=== PATIENT | female | born 1985 | race Caucasian/White ===

== ENCOUNTER 2020-07-24 08:21 | Emergency (ER) | payer BC, OTHER ==
--- NOTE | 2020-07-24 08:49 | EDM.PDOC ---
ED HPI GENERAL MEDICAL PROBLEM - General Chief Complaint: Respiratory Problem Stated Complaint: SHORTNESS OF BREATHE Time Seen by Provider: 07/24/20 08:27 - History of Present Illness INITIAL COMMENTS - FREE TEXT/NARRATIVE: History of present illness: Patient presents with concerns over shortness of breath. She has been tested for COVID she has body aches cough congestion runny nose sore throat and fever off and on her is positive so it is likely that she also has the disease. She is very anxious in the emergency department and hyperventilating but she is satting 100% on room air with no obvious respiratory distress. She states she is a type I diabetic otherwise no medical problems no respiratory issues. Review of systems: As per history of present illness and below otherwise all systems reviewed and negative. Past medical history: As per history of present illness and as reviewed below otherwise noncontributory. Surgical history: As per history of present illness and as reviewed below otherwise no ncontributory. Social history: No reported history of drug or alcohol abuse. Family history: As per history of present illness and as reviewed below otherwise noncontributory. Physical exam: HEENT: Atraumatic, normocephalic, pupils reactive, negative for conjunctival pallor or scleral icterus, mucous membranes moist, throat clear, neck supple, nontender, trachea midline. Lungs: Clear to auscultation, breath sounds equal bilaterally, chest nontender. Heart: S1S2, regular, negative for clicks, rubs, or JVD. Abdomen: Soft, nondistended, nontender. Negative for masses or hepatosplenomegaly. Negative for costovertebral tenderness. Pelvis: Stable nontender. Genitourinary: Deferred. Rectal: Deferred. Extremities: Atraumatic, negative for cords or calf pain. Neurovascular unremarkable. Neuro: Awake, alert, oriented. Cranial nerves II through XII unremarkable. Cerebellum unremarkable. Motor and sensory unremarkable throughout. Exam nonfocal. Anxious Diagnostics: [] Therapeutics: [] Impression: Anxiety, COVID-19 [] Plan: She will be discharged home she is encouraged to stay home in isolation only come to the emergency department for respiratory distress. [] Definitive disposition and diagnosis as appropriate pending reevaluation and review of above. Chest Pain Score (Numeric/FACES): 1 - Related Data Allergies Allergy/AdvReac Type Severity Reaction Status Date / Time No Known Allergies Allergy Verified 07/24/20 08:32 Home Meds: Home Meds Insulin Aspart [NovoLOG] 1 dose INJECT ASDIRECTED 07/24/20 [History] Insulin Glarg,Human.Rec.Analog [Lantus] 1 dose INJECT ASDIRECTED 07/24/20 [History] Rosuvastatin [Crestor] 10 mg PO DAILY 07/24/20 [History] lisinopriL [Lisinopril] 5 mg PO DAILY 07/24/20 [History] Past Medical History Cardiovascular History: Reports: High Cholesterol, Hypertension Endocrine/Metabolic History: Reports: Diabetes, Type I - Infectious Disease History Infectious Disease History: Reports: None Social & Family History - Family History Family Medical History: Noncontributory - Tobacco Use Tobacco Use Status *Q: Never Tobacco User - Caffeine Use Caffeine Use: Reports: None - Recreational Drug Use Recreational Drug Use: No ED ROS GENERAL - Review of Systems Review Of Systems: See Below ED EXAM, GENERAL - Physical Exam Exam: See Below Course - Vital Signs Last Recorded V/S: Last Vital Signs Temp 36.1 C 07/24/20 08:34 Pulse 100 07/24/20 08:34 Resp 17 07/24/20 08:34 BP 127/79 07/24/20 08:34 Pulse Ox 98 07/24/20 08:34 Departure - Departure Time of Disposition: 08:48 Disposition: Home, Self-Care 01 Condition: Good Clinical Impression: COVID-19, Anxiety - Discharge Information *PRESCRIPTION DRUG MONITORING PROGRAM REVIEWED*: Not Applicable *COPY OF PRESCRIPTION DRUG MONITORING REPORT IN PATIENT KARLA: Not Applicable Instructions: COVID-19: How to Protect Yourself and Others - CDC, Prevent the Spread of COVID-19 if You Are Sick - [facility] Referrals: Hussein Meade MD [Primary Care Provider] - Additional Instructions: The following information is given to patients seen in the emergency department who are being discharged to home. This information is to outline your options for follow-up care. We provide all patients seen in our emergency department with a follow-up referral. The need for follow-up, as well as the timing and circumstances, are variable depending upon the specifics of your emergency department visit. If you don't have a primary care physician on staff, we will provide you with a referral. We always advise you to contact your personal physician following an emergency department visit to inform them of the circumstance of the visit and for follow-up with them and/or the need for any referrals to a consulting specialist. The emergency department will also refer you to a specialist when appropriate. This referral assures that you have the opportunity for follow-up care with a specialist. All of these measure are taken in an effort to provide you with optimal care, which includes your follow-up. Under all circumstances we always encourage you to contact your private physician who remains a resource for coordinating your care. When calling for follow-up care, please make the office aware that this follow-up is from your recent emergency room visit. If for any reason you are refused follow-up, please contact the [facility] Emergency Department at and asked to speak to the emergency department charge nurse. Sepsis Event Note (ED) - Evaluation Sepsis Screening Result: No Definite Risk - Focused Exam Vital Signs: Vital Signs Temp Pulse Resp BP Pulse Ox 07/24/20 08:34 36.1 C 100 17 127/79 98
== END 2020-07-24 09:04 | disposition home or self-care (01) ==
LOC: MW.ED 08:21
DX: U07.1 COVID-19 (principal); F41.9 Anxiety disorder, unspecified; E78.00 Pure hypercholesterolemia, unspecified; I10 Essential (primary) hypertension; E10.9 Type 1 diabetes mellitus without complications; Z79.899 Other long term (current) drug therapy
CPT/HCPCS: 99282; 99284

== ENCOUNTER 2021-03-24 14:44 | Observation (INO) | payer BC ==
[2021-03-24 16:04] LABS: BLOOD UREA NITROGEN,BUN 10 mg/dL (7.0-18.0); CARBON DIOXIDE,CO2 28.5 mmol/L (21.0-32.0); CHLORIDE,CL 102 mmol/L (98-107); GLUCOSE RANDOM 255 mg/dL (74-106); POTASSIUM,K 4.1 mmol/L (3.5-5.1); SODIUM,NA 137 mmol/L (136-145)
[2021-03-24] MEDS ORDERED: Ondansetron 4 MG/2 ML SDV IVPUSH ONE (17:01)
--- NOTE | 2021-03-24 17:44 | EDM.PDOC ---
ED HPI GENERAL MEDICAL PROBLEM - General Chief Complaint: General Stated Complaint: LOW IRON LEVELS Time Seen by Provider: 03/24/21 14:53 - History of Present Illness INITIAL COMMENTS - FREE TEXT/NARRATIVE: CHIEF COMPLAINT(S): Anemia HISTORY OF PRESENT ILLNESS: This is a 35-year-old woman with a past medical history of dysfunctional uterine bleeding who comes to the emergency department with a chief complaint of anemia. The patient states that for the last 12 days she has been experiencing vaginal bleeding soaking approximately 1-2 pads per hour and some pelvic cramping. She states that this does feel like a normal. H owever she was on control for approximately 10 years for heavy menstrual bleeding. She states they stopped her control in August 2020. She states that over the last 12 days she is continuously blood. She states that she is feeling weak, fatigued, dizzy. She states that she is sexually active with one partner and is not concerned about STDs. She denies any chest pain or shortness of breath. REVIEW OF SYSTEMS: Constitutional: Positive for fatigue. Denies fever, chills. Eyes: Denies eye pain Ears, Nose, Mouth, & Throat: Denies earache Cardiovascular: Denies chest pain Respiratory: Denies shortness of breath Gastrointestinal: Denies abdominal pain, nausea, vomiting, diarrhea, hematochezia. Genitourinary: Positive for vaginal bleeding. Denies hematuria, dysuria, vagina l discharge Skin:Denies a rash MSK: Denies joint pain Neurological: Positive for dizziness. Denies blurred vision Psychiatric: Denies depression PAST MEDICAL HISTORY: As per history of present illness and as reviewed below otherwise noncontributory. SURGICAL HISTORY: As per history of present illness and as reviewed below otherwise noncontributory. SOCIAL HISTORY: As per history of present illness and as reviewed below otherwise noncontributory. FAMILY HISTORY: As per history of present illness and as reviewed below otherwise noncontributory. EXAMINATION OF ORGAN SYSTEMS/BODY AREAS: Constitutional: Blood pressure is 114/60, heart rate 120, respiratory rate 18 with an oxygen saturation of 98% on room air. Temperature 36.2 General: Young woman who does not appear to be in acute distress. Psychiatric: Appropriate mood and affect. Eyes: No scleral icterus or conjunctival erythema conjunctiva is pale. ENMT: Moist mucous membranes. No pharyngeal erythema pale mucous membranes. Cardiovascular: Tachycardic but regular no gallops, murmurs, or rubs. Bilateral upper extremity pulses symmetric and intact. No peripheral edema. No JVD. Respiratory: Lungs clear to auscultation bilaterally. No wheezes, rales, or rhonchi. Gastrointestinal: Soft, non-tender, non-distended. Normoactive bowel sounds Genitourinary: No suprapubic tenderness no CVA tenderness. Pelvic examination was performed with BALBIR Vasquez in presence. On speculum examination it was difficult to obtain views as there was a significant amount of diluted blood that was coming out the vaginal vault. There was a large clot. On bimanual examination there was right adnexal tenderness. No cervical motion tenderness or left adnexal tenderness. Musculoskeletal: Normal range of motion. Skin: No lesions or abrasions. Neurological: Alert, GCS 15 MEDICAL DECISION MAKING AND COURSE IN THE ED WITH INTERPRETATION/REVIEW OF DIAGNOSTIC STUDIES: This is a 35-year-old woman with a past medical history of dysfunctional uterine bleeding who comes to the emergency department with anemia from outpatient clinic who has had vaginal bleeding soaking through 1-2 pads every hour for the last 12 days. The patient is tachycardic however we will hold off on fluid administration at this time as I do believe the patient will likely require blood transfusion. The patient's blood pressure is normal. We will obtain CBC, BMP, hCG and Covid. Given the pelvic examination we will obtain a ultrasound to evaluate for right ovarian pathology versus other etiologies for the patient's vaginal bleeding. I did offer the patient pain medication at this time however she stated that she was fine. Laboratory: CBC reveals a normocytic anemia with a hemoglobin of 6.2 and hematocrit of 18.3. Coags are within normal limits. BMP reveals hyperglycemia at 255 otherwise unremarkable. hCG is negative. Covid is negative. After laboratory results I did consent the patient for blood transfusion given her symptoms. This is placed in the chart. We will start with 1 unit of PRBCs. The radiological images were viewed by myself along with reading the report from the radiologist. Transvaginal ultrasound does not reveal any acute abnormality. After imaging I did discuss results with the patient admission for symptomatic anemia secondary to dysfunctional uterine bleeding. She was amenable to this plan. I did contact Dr. Jones who accepted the patient for admission. DISPOSITION: Patient was admitted to the hospital in stable condition CONDITION: Serious PROCEDURES: None FINAL IMPRESSION(S)/DIAGNOSES: 1. Acute blood loss anemia likely secondary to dysfunctional uterine bleeding. 2. Acute tachycardia likely secondary #1 Ronn Hernandez M.D. Abdominal Pain Score (Numeric/FACES): 2 - Related Data Allergies Allergy/AdvReac Type Severity Reaction Status Date / Time No Known Allergies Allergy Verified 07/24/20 08:32 Home Meds: Home Meds Insulin Aspart [NovoLOG] 1 dose INJECT ASDIRECTED 07/24/20 [History] Insulin Glarg,Human.Rec.Analog [Lantus] 1 dose INJECT ASDIRECTED 07/24/20 [H istory] Rosuvastatin [Crestor] 10 mg PO DAILY 07/24/20 [History] lisinopriL [Lisinopril] 5 mg PO DAILY 07/24/20 [History] Past Medical History HEENT History: Reports: None Cardiovascular History: Reports: High Cholesterol, Hypertension Respiratory History: Reports: None Gastrointestinal History: Reports: None Genitourinary History: Reports: None [employer] History: Reports: Musculoskeletal History: Reports: None Neurological History: Reports: None Psychiatric History: Reports: None Endocrine/Metabolic History: Reports: Diabetes, Type I Hematologic History: Reports: None Immunologic History: Reports: None Oncologic (Cancer) History: Reports: None Dermatologic History: Reports: None - Infectious Disease History Infectious Disease History: Reports: Novel Coronavirus - Past Surgical History Head Surgeries/Procedures: Reports: None Social & Family History - Family History Family Medical History: No Pertinent Family History - Tobacco Use Tobacco Use Status *Q: Never Tobacco User Second Hand Smoke Exposure: No - Caffeine Use Caffeine Use: Reports: Coffee - Recreational Drug Use Recreational Drug Use: No ED ROS GENERAL - Review of Systems Review Of Systems: See Below ED EXAM, GENERAL - Physical Exam Exam: See Below Course - Vital Signs Last Recorded V/S: Last Vital Signs Temp 36.6 C 03/24/21 19:07 Pulse 103 H 03/24/21 19:07 Resp 17 03/24/21 19:07 BP 111/59 L 03/24/21 19:07 Pulse Ox 99 03/24/21 19:07 - Orders/Labs/Meds Orders: Active Orders 24 hr Category Date Time Status Admission Status [Patient Status] [ADT] Stat ADT 03/24/21 18:58 Active Verify Patient Consent Obtain [RC] ASDIRECTED Care 03/24/21 16:38 Active RED BLOOD CELLS LP [BBK] Stat Lab 03/24/21 15:28 Results TYPE AND SCREEN [BBK] Stat Lab 03/24/21 15:28 Results Transfuse Red Blood Cells [COMM] Stat Oth 03/24/21 16:38 Ordered Labs: Laboratory Tests 03/24/21 03/24/21 03/24/21 Range/Units 15:28 15:28 15:28 WBC 9.05 (4.0-11.0) K/uL RBC 2.12 L (4.30-5.90) M/uL Hgb 6.2 L (12.0-16.0) g/dL Hct 18.3 L (36.0-46.0) % MCV 86.3 (80.0-98.0) fL MCH 29.2 (27.0-32.0) pg MCHC 33.9 (31.0-37.0) g/dL RDW Std Deviation 41.8 (28.0-62.0) fl RDW Coeff of Samir 14 (11.0-15.0) % Plt Count 239 (150-400) K/uL MPV 10.10 (7.40-12.00) fL Neut % (Auto) 76.2 (48.0-80.0) % Lymph % (Auto) 18.3 (16.0-40.0) % [place] % (Auto) 4.8 (0.0-15.0) % Eos % (Auto) 0.4 (0.0-7.0) % Baso % (Auto) 0.3 (0.0-1.5) % Neut # (Auto) 6.9 H (1.4-5.7) K/uL Lymph # (Auto) 1.7 (0.6-2.4) K/uL [place] # (Auto) 0.4 (0.0-0.8) K/uL Eos # (Auto) 0.0 (0.0-0.7) K/uL Baso # (Auto) 0.0 (0.0-0.1) K/uL Nucleated RBC % 0.0 /100WBC Nucleated RBCs # 0 K/uL INR 0.96 APTT 20.1 (18.6-31.3) SEC Sodium 137 (136-145) mmol/L Potassium 4.1 (3.5-5.1) mmol/L Chloride 102 (98-107) mmol/L Carbon Dioxide 28.5 (21.0-32.0) mmol/L BUN 10 (7.0-18.0) mg/dL Creatinine 0.7 (0.6-1.0) mg/dL Est Cr Clr Drug Dosing 108.04 mL/min Estimated GFR (MDRD) > 60.0 ml/min Glucose 255 H (74-106) mg/dL Calcium 8.7 (8.5-10.1) mg/dL HCG, Qual (NEG) SARS-CoV-2 RNA (CIELO) (NEGATIVE) Blood Type Antibody Screen Crossmatch 03/24/21 03/24/21 03/24/21 Range/Units 15:28 15:28 16:18 WBC (4.0-11.0) K/uL RBC (4.30-5.90) M/uL Hgb (12.0-16.0) g/dL Hct (36.0-46.0) % MCV (80.0-98.0) fL MCH (27.0-32.0) pg MCHC (31.0-37.0) g/dL RDW Std Deviation (28.0-62.0) fl RDW Coeff of Samir (11.0-15.0) % Plt Count (150-400) K/uL MPV (7.40-12.00) fL Neut % (Auto) (48.0-80.0) % Lymph % (Auto) (16.0-40.0) % [place] % (Auto) (0.0-15.0) % Eos % (Auto) (0.0-7.0) % Baso % (Auto) (0.0-1.5) % Neut # (Auto) (1.4-5.7) K/uL Lymph # (Auto) (0.6-2.4) K/uL [place] # (Auto) (0.0-0.8) K/uL Eos # (Auto) (0.0-0.7) K/uL Baso # (Auto) (0.0-0.1) K/uL Nucleated RBC % /100WBC Nucleated RBCs # K/uL INR APTT (18.6-31.3) SEC Sodium (136-145) mmol/L Potassium (3.5-5.1) mmol/L Chloride (98-107) mmol/L Carbon Dioxide (21.0-32.0) mmol/L BUN (7.0-18.0) mg/dL Creatinine (0.6-1.0) mg/dL Est Cr Clr Drug Dosing mL/min Estimated GFR (MDRD) ml/min Glucose (74-106) mg/dL Calcium (8.5-10.1) mg/dL HCG, Qual NEGATIVE (NEG) SARS-CoV-2 RNA (CIELO) NEGATIVE (NEGATIVE) Blood Type A POSITIVE Antibody Screen NEGATIVE Crossmatch See Detail Meds: Medications Discontinued Medications Generic Name Dose Route Start Last Admin Trade Name Freq PRN Reason Stop Dose Admin Ondansetron HCl 4 mg 03/24/21 17:01 03/24/21 17:22 Ondansetron 4 Mg/2 Ml Sdv IVPUSH 03/24/21 17:02 4 mg ONETIME ONE Administration Departure - Departure Time of Disposition: 18:58 Disposition: Admitted As Inpatient 65 Condition: Fair Clinical Impression: Anemia - Discharge Information *PRESCRIPTION DRUG MONITORING PROGRAM REVIEWED*: No Referrals: Hussein Meade MD [Primary Care Provider] - Forms: ED Department Discharge Sepsis Event Note (ED) - Evaluation Sepsis Screening Result: No Definite Risk - Focused Exam Vital Signs: Vital Signs Temp Pulse Resp BP Pulse Ox 03/24/21 19:07 36.6 C 103 H 17 111/59 L 99 03/24/21 18:52 36.6 C 109 H 17 106/58 L 98 03/24/21 18:24 106 H 113/60 97 03/24/21 17:28 106 H 115/60 98 03/24/21 15:55 107 H 114/53 L 99 03/24/21 14:51 36.2 C 120 H 18 114/60 98 - My Orders Last 24 Hours: My Active Orders 03/24/21 15:28 RED BLOOD CELLS LP [BBK] Stat TYPE AND SCREEN [BBK] Stat 03/24/21 16:38 Verify Patient Consent Obtain [RC] ASDIRECTED Transfuse Red Blood Cells [COMM] Stat 03/24/21 18:58 Admission Status [Patient Status] [ADT] Stat - Assessment/Plan Last 24 Hours: My Active Orders 03/24/21 15:28 RED BLOOD CELLS LP [BBK] Stat TYPE AND SCREEN [BBK] Stat 03/24/21 16:38 Verify Patient Consent Obtain [RC] ASDIRECTED Transfuse Red Blood Cells [COMM] Stat 03/24/21 18:58 Admission Status [Patient Status] [ADT] Stat
--- NOTE | 2021-03-24 18:31 | US ---
INDICATION: Heavy vaginal bleeding, right adnexal tenderness TECHNIQUE: Ultrasound pelvis transvaginal for better assessment or to better visualize the endometrium. Real-time sonographic images with spectral and color Doppler imaging of the ovaries were obtained. COMPARISON: None FINDINGS: Uterus: 9.5 x 6.1 x 4.8 cm. Normal echotexture of the myometrium. No masses. Multiple nabothian cysts. Endometrium: Transvaginal imaging was performed to better evaluate the endometrium. 1.3 mm in thickness. No sign of endometrial mass or fluid. Right ovary: 4.0 x 1.5 x 2.7 cm. No ovarian or adnexal masses. Normal arterial and venous blood flow. Left ovary: 1.7 x 4.9 cm. No ovarian or adnexal masses. Normal arterial and venous blood flow. Cul-de-sac: No significant free fluid. IMPRESSION: No evidence for torsion. No free fluid. No acute abnormality identified. Dictated by Katlin Cortés MD @ 03/24/2021 6:28:[address] Katlin Cortés @ Mar 24 2021 6:28PM
[2021-03-24] MEDS ORDERED: Insulin Aspart 100 Units/ML 3 ML Pen ONE (20:02)
--- NOTE | 2021-03-24 20:19 | PCM.HP.2 ---
H&P History of Present Illness - General Date of Service: 03/24/21 Admit Problem/Dx: Admission Diagnosis/Problem Admission Diagnosis/Problem Anemia due to blood loss Heavy menstrual bleeding Source of Information: Patient History Limitations: Reports: No Limitations - History of Present Illness Initial Comments - Free Text/Narative: Patient has had vaginal bleeding for the past 12 days, has been heavy since day 2. Changing protection every 30-60 minutes. Began having symptoms of fatigue, dizziness, and weakness on Tuesday night. Saw PCP (Dr. Meade) yesterday, he prescribed oral estrogen (she has taken 1 dose), and had lab evaluation performed. Patient unsure what hemoglobin was yesterday, but remembers being told it "wasn't down to 7 yet." She was informed she likely needed to be seen in the ER for possible transfusion. She has had mild-moderate cramping with this b leeding, controlled with Ibuprofen and Tylenol. Began having heavy periods 12 years ago, after her second child born. Was started on OCPs by Dr. Meade for this, with good control of periods for roughly 10 years. 2 years ago, began having breakthrough bleeding for 2 weeks each month, not heavy; she was started on a different OCP. In August 2020 she began having breakthrough bleeding again. An US at that time showed "cysts on the ovaries and cervix." Her periods were subsequently normal until this month. Abdominal Pain Score (Numeric/FACES): 2 - Related Data Allergies/Adverse Reactions: Allergies Allergy/AdvReac Type Severity Reaction Status Date / Time No Known Allergies Allergy Verified 07/24/20 08:32 Home Medications: Home Meds Insulin Aspart [NovoLOG] 1 dose INJECT ASDIRECTED 07/24/20 [History] Insulin Glarg,Human.Rec.Analog [Lantus] 1 dose INJECT ASDIRECTED 07/24/20 [Histo ry] Rosuvastatin [Crestor] 10 mg PO DAILY 07/24/20 [History] lisinopriL [Lisinopril] 5 mg PO DAILY 07/24/20 [History] Past Medical History HEENT History: Reports: None Cardiovascular History: Reports: High Cholesterol. Denies: Hypertension Respiratory History: Reports: None. Denies: Asthma Gastrointestinal History: Reports: None Genitourinary History: Reports: None. Denies: [employer] History: Reports: : 2 Para: 2 Other OB/BYN History: G1- Preeclampsia, 15 years ago, for arrest of dilation. G2- Term, 12 years ago, planned repeat . Denies history of abnormal Pap; most recent normal October 2018 per patient report Musculoskeletal History: Reports: None Neurological History: Reports: None. Denies: Migraines, Neuropathy, Diabetic Psychiatric History: Reports: Anxiety, Depression Endocrine/Metabolic History: Reports: Diabetes, Type I (diagnosed January 1989) Hematologic History: Reports: Anemia. Denies: Bleeding Disorder Immunologic History: Reports: None Oncologic (Cancer) History: Reports: None Dermatologic History: Reports: None - Infectious Disease History Infectious Disease History: Reports: Novel Coronavirus (July 2020) - Past Surgical History HEENT Surgical History: Reports: Other (See Below) (wisdom teeth extraction) Female Surgical History: Reports: Section (x2) Musculoskeletal Surgical History: Reports: Other (See Below) (trigger finger (left)) Social & Family History - Family History Respiratory: Reports: Sleep Apnea (mother) Endocrine/Metabolic: Reports: Hypothyroidism (mother) Hematologic: Denies: Bleeding Disorder - Tobacco Use Tobacco Use Status *Q: Never Tobacco User Second Hand Smoke Exposure: No - Caffeine Use Caffeine Use: Reports: Coffee - Alcohol Use Alcohol Use History: Yes Alcohol Use Frequency: Socially - Recreational Drug Use Recreational Drug Use: No - Sexual History Sexual History: Reports: Single Partner - Living Situation & Occupation Living situation: Reports: Occupation: Employed H&P Review of Systems - Review of Systems: Review Of Systems: See Below General: Reports: Fatigue HEENT: Reports: No Symptoms Pulmonary: Reports: No Symptoms. Denies: Shortness of Breath Cardiovascular: Reports: No Symptoms. Denies: Chest Pain Gastrointestinal: Reports: No Symptoms Genitourinary: Reports: Abnormal Menses Musculoskeletal: Reports: No Symptoms Skin: Reports: No Symptoms Psychiatric: Reports: No Symptoms Neurological: Reports: Dizziness, Weakness Hematologic/Lymphatic: Reports: Anemia Immunologic: Reports: No Symptoms Exam - Exam Exam: See Below - Vital Signs Vital Signs: Last Vital Signs Temp 36.6 C 03/24/21 19:07 Pulse 103 H 03/24/21 19:07 Resp 17 03/24/21 19:07 BP 111/59 L 03/24/21 19:07 Pulse Ox 99 03/24/21 19:07 Weight: 86.183 kg - Exam General: Alert, Oriented, 4 Neck: Supple Lungs: Clear to Auscultation, Normal Respiratory Effort Cardiovascular: Regular Rate, Regular Rhythm GI/Abdominal Exam: Normal Bowel Sounds, Soft, Non-Tender, No Distention (Female) Exam: Deferred, Other (Per ER provider: large amount of blood and clot in vagina) Rectal (Female) Exam: Deferred Back Exam: Normal Inspection Extremities: Normal Inspection, Non-Tender, No Pedal Edema Skin: Warm, Dry, Intact Neuro Extensive - Mental Status: Alert, Oriented x3, Normal Mood/Affect Psychiatric: Alert, Normal Affect, Normal Mood - Patient Data Lab Results Last 24 hrs: Laboratory Results - last 24 hr 03/24/21 03/24/21 03/24/21 Range/Units 15:28 15:28 15:28 WBC 9.05 (4.0-11.0) K/uL RBC 2.12 L (4.30-5.90) M/uL Hgb 6.2 L (12.0-16.0) g/dL Hct 18.3 L (36.0-46.0) % MCV 86.3 (80.0-98.0) fL MCH 29.2 (27.0-32.0) pg MCHC 33.9 (31.0-37.0) g/dL RDW Std Deviation 41.8 (28.0-62.0) fl RDW Coeff of Samir 14 (11.0-15.0) % Plt Count 239 (150-400) K/uL MPV 10.10 (7.40-12.00) fL Neut % (Auto) 76.2 (48.0-80.0) % Lymph % (Auto) 18.3 (16.0-40.0) % [place] % (Auto) 4.8 (0.0-15.0) % Eos % (Auto) 0.4 (0.0-7.0) % Baso % (Auto) 0.3 (0.0-1.5) % Neut # (Auto) 6.9 H (1.4-5.7) K/uL Lymph # (Auto) 1.7 (0.6-2.4) K/uL [place] # (Auto) 0.4 (0.0-0.8) K/uL Eos # (Auto) 0.0 (0.0-0.7) K/uL Baso # (Auto) 0.0 (0.0-0.1) K/uL Nucleated RBC % 0.0 /100WBC Nucleated RBCs # 0 K/uL INR 0.96 APTT 20.1 (18.6-31.3) SEC Sodium 137 (136-145) mmol/L Potassium 4.1 (3.5-5.1) mmol/L Chloride 102 (98-107) mmol/L Carbon Dioxide 28.5 (21.0-32.0) mmol/L BUN 10 (7.0-18.0) mg/dL Creatinine 0.7 (0.6-1.0) mg/dL Est Cr Clr Drug Dosing 108.04 mL/min Estimated GFR (MDRD) > 60.0 ml/min Glucose 255 H (74-106) mg/dL POC Glucose (70-99) mg/dL Calcium 8.7 (8.5-10.1) mg/dL HCG, Qual (NEG) SARS-CoV-2 RNA (CIELO) (NEGATIVE) Blood Type Antibody Screen Crossmatch 03/24/21 03/24/21 03/24/21 Range/Units 15:28 15:28 16:18 WBC (4.0-11.0) K/uL RBC (4.30-5.90) M/uL Hgb (12.0-16.0) g/dL Hct (36.0-46.0) % MCV (80.0-98.0) fL MCH (27.0-32.0) pg MCHC (31.0-37.0) g/dL RDW Std Deviation (28.0-62.0) fl RDW Coeff of Samir (11.0-15.0) % Plt Count (150-400) K/uL MPV (7.40-12.00) fL Neut % (Auto) (48.0-80.0) % Lymph % (Auto) (16.0-40.0) % [place] % (Auto) (0.0-15.0) % Eos % (Auto) (0.0-7.0) % Baso % (Auto) (0.0-1.5) % Neut # (Auto) (1.4-5.7) K/uL Lymph # (Auto) (0.6-2.4) K/uL [place] # (Auto) (0.0-0.8) K/uL Eos # (Auto) (0.0-0.7) K/uL Baso # (Auto) (0.0-0.1) K/uL Nucleated RBC % /100WBC Nucleated RBCs # K/uL INR APTT (18.6-31.3) SEC Sodium (136-145) mmol/L Potassium (3.5-5.1) mmol/L Chloride (98-107) mmol/L Carbon Dioxide (21.0-32.0) mmol/L BUN (7.0-18.0) mg/dL Creatinine (0.6-1.0) mg/dL Est Cr Clr Drug Dosing mL/min Estimated GFR (MDRD) ml/min Glucose (74-106) mg/dL POC Glucose (70-99) mg/dL Calcium (8.5-10.1) mg/dL HCG, Qual NEGATIVE (NEG) SARS-CoV-2 RNA (CIELO) NEGATIVE (NEGATIVE) Blood Type A POSITIVE Antibody Screen NEGATIVE Crossmatch See Detail 03/24/21 Range/Units 19:28 WBC (4.0-11.0) K/uL RBC (4.30-5.90) M/uL Hgb (12.0-16.0) g/dL Hct (36.0-46.0) % MCV (80.0-98.0) fL MCH (27.0-32.0) pg MCHC (31.0-37.0) g/dL RDW Std Deviation (28.0-62.0) fl RDW Coeff of Samir (11.0-15.0) % Plt Count (150-400) K/uL MPV (7.40-12.00) fL Neut % (Auto) (48.0-80.0) % Lymph % (Auto) (16.0-40.0) % [place] % (Auto) (0.0-15.0) % Eos % (Auto) (0.0-7.0) % Baso % (Auto) (0.0-1.5) % Neut # (Auto) (1.4-5.7) K/uL Lymph # (Auto) (0.6-2.4) K/uL [place] # (Auto) (0.0-0.8) K/uL Eos # (Auto) (0.0-0.7) K/uL Baso # (Auto) (0.0-0.1) K/uL Nucleated RBC % /100WBC Nucleated RBCs # K/uL INR APTT (18.6-31.3) SEC Sodium (136-145) mmol/L Potassium (3.5-5.1) mmol/L Chloride (98-107) mmol/L Carbon Dioxide (21.0-32.0) mmol/L BUN (7.0-18.0) mg/dL Creatinine (0.6-1.0) mg/dL Est Cr Clr Drug Dosing mL/min Estimated GFR (MDRD) ml/min Glucose (74-106) mg/dL POC Glucose 238 H (70-99) mg/dL Calcium (8.5-10.1) mg/dL HCG, Qual (NEG) SARS-CoV-2 RNA (CIELO) (NEGATIVE) Blood Type Antibody Screen Crossmatch Result Diagrams: 03/24/21 15:28 03/24/21 15:28 Sepsis Event Note - Evaluation Sepsis Screening Result: No Definite Risk - Focused Exam Vital Signs: Vital Signs Temp Pulse Resp BP Pulse Ox 03/24/21 19:07 36.6 C 103 H 17 111/59 L 99 03/24/21 18:52 36.6 C 109 H 17 106/58 L 98 03/24/21 18:24 106 H 113/60 97 03/24/21 17:28 106 H 115/60 98 03/24/21 15:55 107 H 114/53 L 99 03/24/21 14:51 36.2 C 120 H 18 114/60 98 *Q Meaningful Use (ADM) - VTE *Q VTE Mechanical Contraindications *Q: At Risk for Falls VTE Pharmacological Contraindications *Q: Active Hemorrhage VTE Anticoagulation Contraindications: Med/TX Not Indicated/Need - VTE Risk Assess *Q Each Risk Factor Represents 1 Point: None Total Score 1 Point Risk Factors: 0 Each Risk Factor Represents 2 Points: None Total Score 2 Point Risk Factors: 0 Each Risk Factor Represents 3 Points: None Total Score 3 Point Risk Factors: 0 Each Risk Factor Represents 5 Points: None Total Score 5 Point Risk Factors: 0 Venous Thromboembolism Risk Factor Score *Q: 0 - Stroke *Q Aspirin Contraindications Stroke *Q: Other (Use Special Inst) (none) Anticoagulation Contraindications Stroke *Q: Med/TX Not Indicated/Need Antithrombotic Contraindications Stroke *Q: Med/TX Not Indicated/Need Thrombolytic/Fibrinolytic Contraindications Stroke *Q: Med/TX Not Indicated/Need Statin Contraindications Stroke *Q: Med/TX Not Indicated/Need Rehabilitation Assessment Contraindication *Q: Med/tx not indicated/need - AMI *Q Aspirin Contraindications AMI *Q: Med/TX Not Indicated/Need Thrombolytic/Fibrinolytic Contraindications IV (AMI) *Q: Med/tx not indicated/need Statin Contraindications AMI *Q: Med/TX Not Indicated/Need - Tobacco (TOB) Core Measure 1:1 Practical Counseling Performed: N/A - Problem List (1) Heavy menses SNOMED Code(s): 696442862 ICD Code: N92.0 - EXCESSIVE AND FREQUENT MENSTRUATION WITH REGULAR CYCLE Status: Acute Current Visit: Yes (2) Acute blood loss anemia SNOMED Code(s): 411598900 ICD Code: D62 - ACUTE POSTHEMORRHAGIC ANEMIA Status: Acute Current Visit: Yes (3) Diabetes type 1, controlled SNOMED Code(s): 68780013, 052350193 ICD Code: E10.9 - TYPE 1 DIABETES MELLITUS WITHOUT COMPLICATIONS Status: Acute Current Visit: Yes Qualifiers: Diabetes mellitus complication status: without complication Qualified Code(s): E10.9 - Type 1 diabetes mellitus without complications Problem List Initiated/Reviewed/Updated: Yes Orders Last 24hrs: Active Orders 24 hr Category Date Time Status Admission Status [Patient Status] [ADT] Stat ADT 03/24/21 18:58 Active Verify Patient Consent Obtain [RC] ASDIRECTED Care 03/24/21 16:38 Active RED BLOOD CELLS LP [BBK] Stat Lab 03/24/21 15:28 Results TYPE AND SCREEN [BBK] Stat Lab 03/24/21 15:28 Results Transfuse Red Blood Cells [COMM] Stat Oth 03/24/21 16:38 Ordered Assessment/Plan Comment:: 34yo with heavy menstrual bleeding and acute blood loss anemia. 1. Will admit for 23-hour observation. 2. Heavy menstrual bleeding: Plan IV estrogen and tranexamic acid to stop bleeding. Pelvic US normal tonight. Discussed need for endometrial sampling, will perform outpatient in office. Briefly reviewed treatment options for long- term management of menses, including hormonal (oral, Depo-Provera, IUD) and surgical (ablation, hysterectomy). Will have IV antiemetics ordered due to risk of nausea with high-dose estrogen. 3. Acute blood loss anemia: Received 1 unit packed RBCs in ER. Will check hemoglobin overnight and again in morning. Discussed patient may require second unit of blood if symptoms not resolved. Will give dose of IV iron and begin oral iron/vitamin C replacement. 4. Type 1 diabetes: Without microvascular complications. Continue home medications (AM 14U aspart; noon 16U aspart; supper 20-21U aspart; snacks 1U:15 carbs aspart; 9pm 38U lantus). Will continue Lisinopril for kidney protection and Rosuvastatin. Last dose of insulin at noon today. Will check blood sugars at bedtime and preprandial meals. Reviewed plan with patient, who voiced understanding and had no additional questions.
[2021-03-24] MEDS ORDERED: Acetaminophen 325 MG Tab PO PRN (20:38)
[2021-03-24] MEDS ORDERED: Promethazine 25 MG/ML SDV IM PRN (20:38)
[2021-03-24] MEDS ORDERED: Ondansetron 4 MG/2 ML SDV IVPUSH PRN (20:38)
[2021-03-24] MEDS ORDERED: Ibuprofen 800 MG Tab PO PRN (20:38)
[2021-03-24] MEDS ORDERED: Tranexamic Acid 1,000 MG in Sodium Chloride 0.9% 100 ML IV ONE (20:42)
[2021-03-24] MEDS ORDERED: Iron Sucrose Complex 500 MG in Sodium Chloride 0.9% 250 ML IV ONE (20:42)
[2021-03-24] MEDS ORDERED: 50% Dextrose in Water 50 ML Syringe IVPUSH PRN (20:47)
[2021-03-24] MEDS ORDERED: Glucagon,Human Recombinant 1 MG Vial IM PRN (20:47)
[2021-03-24] MEDS ORDERED: Insulin Glargine,Human Rec. Analog 100 Units/ML 3 ML Pen SUBCUT SCH (21:00)
[2021-03-25] MEDS ORDERED: Iron Sucrose Complex 500 MG in Sodium Chloride 0.9% 250 ML IV ONE (00:30)
[2021-03-25] MEDS ORDERED: Tranexamic Acid 1,000 MG in Sodium Chloride 0.9% 100 ML IV ONE ×2 (00:30→17:00)
[2021-03-25] MEDS ORDERED: Levothyroxine 125 MCG Tab PO SCH (07:30)
--- NOTE | 2021-03-25 07:51 | PCM.PN ---
- General Info Date of Service: 03/25/21 Subjective Update: Patient states she is feeling better since receiving second unit of packed RBCs. Vaginal bleeding has decreased significantly, has not had to change pad since 10 pm. Has not ambulated for the past several hours, but denies dizziness in bed. Functional Status: Reports: Urinating - Review of Systems General: Reports: No Symptoms HEENT: Reports: No Symptoms Pulmonary: Reports: No Symptoms Cardiovascular: Reports: No Symptoms. Denies: Chest Pain, Palpitations Gastrointestinal: Reports: No Symptoms Musculoskeletal: Reports: No Symptoms Skin: Reports: No Symptoms Neurological: Reports: No Symptoms Psychiatric: Reports: No Symptoms - Patient Data Vitals - Most Recent: Last Vital Signs Temp 37.3 C 03/25/21 04:22 Pulse 99 03/25/21 04:22 Resp 15 03/25/21 04:22 BP 105/57 L 03/25/21 04:22 Pulse Ox 97 03/25/21 04:22 Weight - Most Recent: 85.774 kg I&O - Last 24 Hours: Intake & Output 03/24/21 03/25/21 03/25/21 22:59 06:59 14:59 Intake Total 1210 Output Total 750 Balance 460 Lab Results Last 24 Hours: Laboratory Results - last 24 hr 03/24/21 03/24/21 03/24/21 Range/Units 15:28 15:28 15:28 WBC 9.05 (4.0-11.0) K/uL RBC 2.12 L (4.30-5.90) M/uL Hgb 6.2 L (12.0-16.0) g/dL Hct 18.3 L (36.0-46.0) % MCV 86.3 (80.0-98.0) fL MCH 29.2 (27.0-32.0) pg MCHC 33.9 (31.0-37.0) g/dL RDW Std Deviation 41.8 (28.0-62.0) fl RDW Coeff of Samir 14 (11.0-15.0) % Plt Count 239 (150-400) K/uL MPV 10.10 (7.40-12.00) fL Neut % (Auto) 76.2 (48.0-80.0) % Lymph % (Auto) 18.3 (16.0-40.0) % [place] % (Auto) 4.8 (0.0-15.0) % Eos % (Auto) 0.4 (0.0-7.0) % Baso % (Auto) 0.3 (0.0-1.5) % Neut # (Auto) 6.9 H (1.4-5.7) K/uL Lymph # (Auto) 1.7 (0.6-2.4) K/uL [place] # (Auto) 0.4 (0.0-0.8) K/uL Eos # (Auto) 0.0 (0.0-0.7) K/uL Baso # (Auto) 0.0 (0.0-0.1) K/uL Nucleated RBC % 0.0 /100WBC Nucleated RBCs # 0 K/uL INR 0.96 APTT 20.1 (18.6-31.3) SEC Sodium 137 (136-145) mmol/L Potassium 4.1 (3.5-5.1) mmol/L Chloride 102 (98-107) mmol/L Carbon Dioxide 28.5 (21.0-32.0) mmol/L BUN 10 (7.0-18.0) mg/dL Creatinine 0.7 (0.6-1.0) mg/dL Est Cr Clr Drug Dosing 108.04 mL/min Estimated GFR (MDRD) > 60.0 ml/min Glucose 255 H (74-106) mg/dL POC Glucose (70-99) mg/dL Calcium 8.7 (8.5-10.1) mg/dL Free T4 (0.76-1.46) ng/dL TSH 3rd Generation (0.36-3.74) uIU/mL HCG, Qual (NEG) SARS-CoV-2 RNA (CIELO) (NEGATIVE) Blood Type Antibody Screen Crossmatch 03/24/21 03/24/21 03/24/21 Range/Units 15:28 15:28 16:18 WBC (4.0-11.0) K/uL RBC (4.30-5.90) M/uL Hgb (12.0-16.0) g/dL Hct (36.0-46.0) % MCV (80.0-98.0) fL MCH (27.0-32.0) pg MCHC (31.0-37.0) g/dL RDW Std Deviation (28.0-62.0) fl RDW Coeff of Samir (11.0-15.0) % Plt Count (150-400) K/uL MPV (7.40-12.00) fL Neut % (Auto) (48.0-80.0) % Lymph % (Auto) (16.0-40.0) % [place] % (Auto) (0.0-15.0) % Eos % (Auto) (0.0-7.0) % Baso % (Auto) (0.0-1.5) % Neut # (Auto) (1.4-5.7) K/uL Lymph # (Auto) (0.6-2.4) K/uL [place] # (Auto) (0.0-0.8) K/uL Eos # (Auto) (0.0-0.7) K/uL Baso # (Auto) (0.0-0.1) K/uL Nucleated RBC % /100WBC Nucleated RBCs # K/uL INR APTT (18.6-31.3) SEC Sodium (136-145) mmol/L Potassium (3.5-5.1) mmol/L Chloride (98-107) mmol/L Carbon Dioxide (21.0-32.0) mmol/L BUN (7.0-18.0) mg/dL Creatinine (0.6-1.0) mg/dL Est Cr Clr Drug Dosing mL/min Estimated GFR (MDRD) ml/min Glucose (74-106) mg/dL POC Glucose (70-99) mg/dL Calcium (8.5-10.1) mg/dL Free T4 (0.76-1.46) ng/dL TSH 3rd Generation (0.36-3.74) uIU/mL HCG, Qual NEGATIVE (NEG) SARS-CoV-2 RNA (CIELO) NEGATIVE (NEGATIVE) Blood Type A POSITIVE Antibody Screen NEGATIVE Crossmatch See Detail 03/24/21 03/24/21 03/24/21 Range/Units 18:28 19:28 21:52 WBC (4.0-11.0) K/uL RBC (4.30-5.90) M/uL Hgb (12.0-16.0) g/dL Hct (36.0-46.0) % MCV (80.0-98.0) fL MCH (27.0-32.0) pg MCHC (31.0-37.0) g/dL RDW Std Deviation (28.0-62.0) fl RDW Coeff of Samir (11.0-15.0) % Plt Count (150-400) K/uL MPV (7.40-12.00) fL Neut % (Auto) (48.0-80.0) % Lymph % (Auto) (16.0-40.0) % [place] % (Auto) (0.0-15.0) % Eos % (Auto) (0.0-7.0) % Baso % (Auto) (0.0-1.5) % Neut # (Auto) (1.4-5.7) K/uL Lymph # (Auto) (0.6-2.4) K/uL [place] # (Auto) (0.0-0.8) K/uL Eos # (Auto) (0.0-0.7) K/uL Baso # (Auto) (0.0-0.1) K/uL Nucleated RBC % /100WBC Nucleated RBCs # K/uL INR APTT (18.6-31.3) SEC Sodium (136-145) mmol/L Potassium (3.5-5.1) mmol/L Chloride (98-107) mmol/L Carbon Dioxide (21.0-32.0) mmol/L BUN (7.0-18.0) mg/dL Creatinine (0.6-1.0) mg/dL Est Cr Clr Drug Dosing mL/min Estimated GFR (MDRD) ml/min Glucose (74-106) mg/dL POC Glucose 238 H 240 H (70-99) mg/dL Calcium (8.5-10.1) mg/dL Free T4 (0.76-1.46) ng/dL TSH 3rd Generation 4.30 H (0.36-3.74) uIU/mL HCG, Qual (NEG) SARS-CoV-2 RNA (CIELO) (NEGATIVE) Blood Type Antibody Screen Crossmatch 03/25/21 03/25/21 03/25/21 Range/Units 00:26 00:26 06:35 WBC 9.00 (4.0-11.0) K/uL RBC 2.16 L (4.30-5.90) M/uL Hgb 6.1 L (12.0-16.0) g/dL Hct 18.5 L (36.0-46.0) % MCV 85.6 (80.0-98.0) fL MCH 28.2 (27.0-32.0) pg MCHC 33.0 (31.0-37.0) g/dL RDW Std Deviation 42.9 (28.0-62.0) fl RDW Coeff of Samir 14 (11.0-15.0) % Plt Count 221 (150-400) K/uL MPV 10.10 (7.40-12.00) fL Neut % (Auto) 70.1 (48.0-80.0) % Lymph % (Auto) 22.9 (16.0-40.0) % [place] % (Auto) 6.8 (0.0-15.0) % Eos % (Auto) 0.1 (0.0-7.0) % Baso % (Auto) 0.1 (0.0-1.5) % Neut # (Auto) 6.3 H (1.4-5.7) K/uL Lymph # (Auto) 2.1 (0.6-2.4) K/uL [place] # (Auto) 0.6 (0.0-0.8) K/uL Eos # (Auto) 0.0 (0.0-0.7) K/uL Baso # (Auto) 0.0 (0.0-0.1) K/uL Nucleated RBC % 0.0 /100WBC Nucleated RBCs # 0 K/uL INR APTT (18.6-31.3) SEC Sodium (136-145) mmol/L Potassium (3.5-5.1) mmol/L Chloride (98-107) mmol/L Carbon Dioxide (21.0-32.0) mmol/L BUN (7.0-18.0) mg/dL Creatinine (0.6-1.0) mg/dL Est Cr Clr Drug Dosing mL/min Estimated GFR (MDRD) ml/min Glucose (74-106) mg/dL POC Glucose 113 H (70-99) mg/dL Calcium (8.5-10.1) mg/dL Free T4 0.66 L (0.76-1.46) ng/dL TSH 3rd Generation (0.36-3.74) uIU/mL HCG, Qual (NEG) SARS-CoV-2 RNA (CIELO) (NEGATIVE) Blood Type Antibody Screen Crossmatch Med Orders - Current: Current Medications Acetaminophen (Acetaminophen 325 Mg Tab) 650 mg PO Q4H PRN PRN Reason: Pain (Mild 1-3)/fever Ascorbic Acid (Ascorbic Acid 500 Mg Tab) 500 mg PO BIDMEALS [facility] Dextrose/Water (50% Dextrose In Water 50 Ml Syringe) 50 ml IVPUSH ASDIRECTED PRN PRN Reason: Hypoglycemia Estrogens Conjugated (Estrogens,Conjugated 25 Mg Vial) 25 mg IVPUSH Q4H [facility] Stop: 03/25/21 08:46 Last Admin: 03/25/21 07:43 Dose: Not Given Documented by: Estrogens Conjugated (Estrogens,Conjugated 0.625 Mg Tab) 2.5 mg PO Q6H [facility] Last Admin: 03/25/21 06:30 Dose: 2.5 mg Documented by: Ferrous Sulfate (Ferrous Sulfate 325 Mg Tab) 325 mg PO BIDMEALS [facility] Glucagon (Glucagon,Human Recombinant 1 Mg Vial) 1 mg IM ASDIRECTED PRN PRN Reason: Hypoglycemia Ibuprofen (Ibuprofen 800 Mg Tab) 800 mg PO Q8H PRN PRN Reason: Pain (mild 1-3) Insulin Aspart (Insulin Aspart 100 Units/Ml 3 Ml Pen) 0 unit SUBCUT TIDAC [facility] Insulin Glargine (Insulin Glargine,Human Rec. Analog 100 Units/Ml 3 Ml Pen) 38 units SUBCUT BEDTIME [facility] Last Admin: 03/24/21 21:54 Dose: 38 units Documented by: Levothyroxine Sodium (Levothyroxine 125 Mcg Tab) 125 mcg PO ACBREAKFAST [facility] Last Admin: 03/25/21 06:30 Dose: 125 mcg Documented by: Lisinopril (Lisinopril 5 Mg Tab) 5 mg PO DAILY [facility] Ondansetron HCl (Ondansetron 4 Mg/2 Ml Sdv) 8 mg IVPUSH Q8H PRN PRN Reason: Nausea/Vomiting Promethazine HCl (Promethazine 25 Mg/Ml Sdv) 25 mg IM Q6H PRN PRN Reason: Nausea Rosuvastatin Calcium (Rosuvastatin 10 Mg Tab) 10 mg PO DAILY [facility] Discontinued Medications Iron Sucrose 500 mg/ Sodium (Chloride) 275 mls @ 62.5 mls/hr IV ONETIME ONE Stop: 03/25/21 01:05 Tranexamic Acid 1,000 mg/ (Sodium Chloride) 110 mls @ 600 mls/hr IV ONETIME ONE Stop: 03/24/21 20:52 Last Admin: 03/25/21 00:17 Dose: Not Given Documented by: Iron Sucrose 500 mg/ Sodium (Chloride) 275 mls @ 62.5 mls/hr IV ONETIME ONE Stop: 03/25/21 04:53 Last Admin: 03/25/21 00:41 Dose: 62.5 mls/hr Documented by: Tranexamic Acid 1,000 mg/ (Sodium Chloride) 110 mls @ 600 mls/hr IV ONETIME ONE Stop: 03/25/21 00:40 Last Admin: 03/25/21 00:18 Dose: 600 mls/hr Documented by: Insulin Aspart (Insulin Aspart 100 Units/Ml 10 Ml Vial) 2 unit SUBCUT BIDAC ONE Stop: 03/25/21 19:39 Insulin Aspart (Insulin Aspart 100 Units/Ml 10 Ml Vial) 2 unit SUBCUT BIDAC ONE Stop: 03/24/21 19:39 Last Admin: 03/24/21 20:12 Dose: 2 units Documented by: Insulin Aspart (Insulin Aspart 100 Units/Ml 3 Ml Pen) Confirm Administered Dose 300 unit .ROUTE .STK-MED ONE Stop: 03/24/21 20:03 Last Admin: 03/24/21 20:17 Dose: Not Given Documented by: Ondansetron HCl (Ondansetron 4 Mg/2 Ml Sdv) 4 mg IVPUSH ONETIME ONE Stop: 03/24/21 17:02 Last Admin: 03/24/21 17:22 Dose: 4 mg Documented by: - Exam General: Alert, Oriented Neck: Supple Lungs: Normal Respiratory Effort GI/Abdominal Exam: Soft, Non-Tender, No Distention Back Exam: Normal Inspection, Full Range of Motion Extremities: Non-Tender, No Pedal Edema Skin: Warm, Dry, Intact Neurological: No New Focal Deficit Psy/Mental Status: Alert, Normal Affect, Normal Mood - Patient Data Lab Results Last 24 hrs: Laboratory Results - last 24 hr 03/24/21 03/24/21 03/24/21 Range/Units 15:28 15:28 15:28 WBC 9.05 (4.0-11.0) K/uL RBC 2.12 L (4.30-5.90) M/uL Hgb 6.2 L (12.0-16.0) g/dL Hct 18.3 L (36.0-46.0) % MCV 86.3 (80.0-98.0) fL MCH 29.2 (27.0-32.0) pg MCHC 33.9 (31.0-37.0) g/dL RDW Std Deviation 41.8 (28.0-62.0) fl RDW Coeff of Samir 14 (11.0-15.0) % Plt Count 239 (150-400) K/uL MPV 10.10 (7.40-12.00) fL Neut % (Auto) 76.2 (48.0-80.0) % Lymph % (Auto) 18.3 (16.0-40.0) % [place] % (Auto) 4.8 (0.0-15.0) % Eos % (Auto) 0.4 (0.0-7.0) % Baso % (Auto) 0.3 (0.0-1.5) % Neut # (Auto) 6.9 H (1.4-5.7) K/uL Lymph # (Auto) 1.7 (0.6-2.4) K/uL [place] # (Auto) 0.4 (0.0-0.8) K/uL Eos # (Auto) 0.0 (0.0-0.7) K/uL Baso # (Auto) 0.0 (0.0-0.1) K/uL Nucleated RBC % 0.0 /100WBC Nucleated RBCs # 0 K/uL INR 0.96 APTT 20.1 (18.6-31.3) SEC Sodium 137 (136-145) mmol/L Potassium 4.1 (3.5-5.1) mmol/L Chloride 102 (98-107) mmol/L Carbon Dioxide 28.5 (21.0-32.0) mmol/L BUN 10 (7.0-18.0) mg/dL Creatinine 0.7 (0.6-1.0) mg/dL Est Cr Clr Drug Dosing 108.04 mL/min Estimated GFR (MDRD) > 60.0 ml/min Glucose 255 H (74-106) mg/dL POC Glucose (70-99) mg/dL Calcium 8.7 (8.5-10.1) mg/dL Free T4 (0.76-1.46) ng/dL TSH 3rd Generation (0.36-3.74) uIU/mL HCG, Qual (NEG) SARS-CoV-2 RNA (CIELO) (NEGATIVE) Blood Type Antibody Screen Crossmatch 03/24/21 03/24/21 03/24/21 Range/Units 15:28 15:28 16:18 WBC (4.0-11.0) K/uL RBC (4.30-5.90) M/uL Hgb (12.0-16.0) g/dL Hct (36.0-46.0) % MCV (80.0-98.0) fL MCH (27.0-32.0) pg MCHC (31.0-37.0) g/dL RDW Std Deviation (28.0-62.0) fl RDW Coeff of Samir (11.0-15.0) % Plt Count (150-400) K/uL MPV (7.40-12.00) fL Neut % (Auto) (48.0-80.0) % Lymph % (Auto) (16.0-40.0) % [place] % (Auto) (0.0-15.0) % Eos % (Auto) (0.0-7.0) % Baso % (Auto) (0.0-1.5) % Neut # (Auto) (1.4-5.7) K/uL Lymph # (Auto) (0.6-2.4) K/uL [place] # (Auto) (0.0-0.8) K/uL Eos # (Auto) (0.0-0.7) K/uL Baso # (Auto) (0.0-0.1) K/uL Nucleated RBC % /100WBC Nucleated RBCs # K/uL INR APTT (18.6-31.3) SEC Sodium (136-145) mmol/L Potassium (3.5-5.1) mmol/L Chloride (98-107) mmol/L Carbon Dioxide (21.0-32.0) mmol/L BUN (7.0-18.0) mg/dL Creatinine (0.6-1.0) mg/dL Est Cr Clr Drug Dosing mL/min Estimated GFR (MDRD) ml/min Glucose (74-106) mg/dL POC Glucose (70-99) mg/dL Calcium (8.5-10.1) mg/dL Free T4 (0.76-1.46) ng/dL TSH 3rd Generation (0.36-3.74) uIU/mL HCG, Qual NEGATIVE (NEG) SARS-CoV-2 RNA (CIELO) NEGATIVE (NEGATIVE) Blood Type A POSITIVE Antibody Screen NEGATIVE Crossmatch See Detail 03/24/21 03/24/21 03/24/21 Range/Units 18:28 19:28 21:52 WBC (4.0-11.0) K/uL RBC (4.30-5.90) M/uL Hgb (12.0-16.0) g/dL Hct (36.0-46.0) % MCV (80.0-98.0) fL MCH (27.0-32.0) pg MCHC (31.0-37.0) g/dL RDW Std Deviation (28.0-62.0) fl RDW Coeff of Samir (11.0-15.0) % Plt Count (150-400) K/uL MPV (7.40-12.00) fL Neut % (Auto) (48.0-80.0) % Lymph % (Auto) (16.0-40.0) % [place] % (Auto) (0.0-15.0) % Eos % (Auto) (0.0-7.0) % Baso % (Auto) (0.0-1.5) % Neut # (Auto) (1.4-5.7) K/uL Lymph # (Auto) (0.6-2.4) K/uL [place] # (Auto) (0.0-0.8) K/uL Eos # (Auto) (0.0-0.7) K/uL Baso # (Auto) (0.0-0.1) K/uL Nucleated RBC % /100WBC Nucleated RBCs # K/uL INR APTT (18.6-31.3) SEC Sodium (136-145) mmol/L Potassium (3.5-5.1) mmol/L Chloride (98-107) mmol/L Carbon Dioxide (21.0-32.0) mmol/L BUN (7.0-18.0) mg/dL Creatinine (0.6-1.0) mg/dL Est Cr Clr Drug Dosing mL/min Estimated GFR (MDRD) ml/min Glucose (74-106) mg/dL POC Glucose 238 H 240 H (70-99) mg/dL Calcium (8.5-10.1) mg/dL Free T4 (0.76-1.46) ng/dL TSH 3rd Generation 4.30 H (0.36-3.74) uIU/mL HCG, Qual (NEG) SARS-CoV-2 RNA (CIELO) (NEGATIVE) Blood Type Antibody Screen Crossmatch 03/25/21 03/25/21 03/25/21 Range/Units 00:26 00:26 06:35 WBC 9.00 (4.0-11.0) K/uL RBC 2.16 L (4.30-5.90) M/uL Hgb 6.1 L (12.0-16.0) g/dL Hct 18.5 L (36.0-46.0) % MCV 85.6 (80.0-98.0) fL MCH 28.2 (27.0-32.0) pg MCHC 33.0 (31.0-37.0) g/dL RDW Std Deviation 42.9 (28.0-62.0) fl RDW Coeff of Samir 14 (11.0-15.0) % Plt Count 221 (150-400) K/uL MPV 10.10 (7.40-12.00) fL Neut % (Auto) 70.1 (48.0-80.0) % Lymph % (Auto) 22.9 (16.0-40.0) % [place] % (Auto) 6.8 (0.0-15.0) % Eos % (Auto) 0.1 (0.0-7.0) % Baso % (Auto) 0.1 (0.0-1.5) % Neut # (Auto) 6.3 H (1.4-5.7) K/uL Lymph # (Auto) 2.1 (0.6-2.4) K/uL [place] # (Auto) 0.6 (0.0-0.8) K/uL Eos # (Auto) 0.0 (0.0-0.7) K/uL Baso # (Auto) 0.0 (0.0-0.1) K/uL Nucleated RBC % 0.0 /100WBC Nucleated RBCs # 0 K/uL INR APTT (18.6-31.3) SEC Sodium (136-145) mmol/L Potassium (3.5-5.1) mmol/L Chloride (98-107) mmol/L Carbon Dioxide (21.0-32.0) mmol/L BUN (7.0-18.0) mg/dL Creatinine (0.6-1.0) mg/dL Est Cr Clr Drug Dosing mL/min Estimated GFR (MDRD) ml/min Glucose (74-106) mg/dL POC Glucose 113 H (70-99) mg/dL Calcium (8.5-10.1) mg/dL Free T4 0.66 L (0.76-1.46) ng/dL TSH 3rd Generation (0.36-3.74) uIU/mL HCG, Qual (NEG) SARS-CoV-2 RNA (CIELO) (NEGATIVE) Blood Type Antibody Screen Crossmatch Result Diagrams: 03/25/21 00:26 03/24/21 15:28 Sepsis Event Note - Evaluation Sepsis Screening Result: No Definite Risk - Focused Exam Vital Signs: Vital Signs Temp Pulse Resp BP Pulse Ox 03/25/21 04:22 37.3 C 99 15 105/57 L 97 03/25/21 00:16 37.2 C 100 14 109/58 L 98 03/24/21 20:55 37.4 C 108 H 16 127/58 L 98 - Problem List & Annotations (1) Heavy menses SNOMED Code(s): 316337638 Code(s): N92.0 - EXCESSIVE AND FREQUENT MENSTRUATION WITH REGULAR CYCLE Status: Acute Current Visit: Yes (2) Acute blood loss anemia SNOMED Code(s): 994615956 Code(s): D62 - ACUTE POSTHEMORRHAGIC ANEMIA Status: Acute Current Visit: Yes (3) Diabetes type 1, controlled SNOMED Code(s): 97473215, 767424156 Code(s): E10.9 - TYPE 1 DIABETES MELLITUS WITHOUT COMPLICATIONS Status: Acute Current Visit: Yes Qualifiers: Diabetes mellitus complication status: without complication Qualified Code(s): E10.9 - Type 1 diabetes mellitus without complications - Problem List Review Problem List Initiated/Reviewed/Updated: Yes - My Orders Last 24 Hours: My Active Orders 03/24/21 Dinner [employer] Diet [DIET] 03/24/21 20:38 Patient Status [ADT] Routine Blood Glucose Check, Bedside [RC] WITHMEALSANDBED May Shower [RC] ASDIRECTED Oxygen Therapy [RC] PRN Up ad Laura [RC] ASDIRECTED VTE/DVT Education [RC] PER UNIT ROUTINE Vital Signs [RC] Q4H Acetaminophen [TylenoL] 650 mg PO Q4H PRN Ibuprofen [Motrin] 800 mg PO Q8H PRN Ondansetron [Zofran] 8 mg IVPUSH Q8H PRN Promethazine [Phenergan] 25 mg IM Q6H PRN Resuscitation Status Routine 03/24/21 20:39 Notify Provider Vital Signs [RC] ASDIRECTED 03/24/21 20:42 Telemetry Monitoring [Cardiac Monitoring] [RC] Q8H 03/24/21 20:45 Estrogens, Conjugated [Premarin] 25 mg IVPUSH Q4H 03/24/21 20:47 Dextrose 50% in Water 50 ml IVPUSH ASDIRECTED PRN Glucagon,Human Recombinant [GlucaGen] 1 mg IM ASDIRECTED PRN 03/24/21 21:00 Insulin Glarg,Human.Rec.Analog [LantUS Solostar] 38 units SUBCUT BEDTIME 03/24/21 21:24 [facility]ON [facility] PROFILE [REF] Routine 03/25/21 00:45 Estrogens, Conjugated [Premarin] 2.5 mg PO Q6H 03/25/21 01:37 Verify Patient Consent Obtain [RC] ASDIRECTED Transfuse Red Blood Cells [COMM] Stat 03/25/21 05:11 BASIC METABOLIC PANEL,BMP [CHEM] AM 03/25/21 07:30 Insulin Aspart [NovoLOG] See Dose Instructions SUBCUT TIDAC Levothyroxine 125 mcg PO ACBREAKFAST 03/25/21 08:00 Ascorbic Acid [Vitamin C] 500 mg PO BIDMEALS Ferrous Sulfate 325 mg PO BIDMEALS 03/25/21 09:00 Rosuvastatin [Crestor] 10 mg PO DAILY lisinopriL [Prinivil] 5 mg PO DAILY 03/25/21 12:00 CBC W/O DIFF,HEMOGRAM [HEME] Routine - Assessment Assessment:: 35yo with acute heavy menstrual bleeding resulting in acute blood loss anemia. - Plan Plan:: 34yo with heavy menstrual bleeding and acute blood loss anemia. 1. Heavy menstrual bleeding: Has received 2 doses of oral premarin 2.5mg (IV estrogen not in hospital), along with 1g IV tranexamic acid, with significant decrease in vaginal bleeding. Reviewed need for endometrial sampling, will perform outpatient in office. Briefly reviewed treatment options for long-term management of menses, including hormonal (oral, Depo-Provera, IUD) and surgical (ablation, hysterectomy). If hemoglobin and bleeding stable, will plan to discharge home with OCP taper and close outpatient follow-up. 2. Acute blood loss anemia: Has received 2 units of packed RBCs and 1 dose of IV iron. Continue oral iron and vitamin C replacement. Repeat CBC pending for noon today, discussed may need third unit of blood if hemoglobin still <7 or sym ptoms continue. 3. Type 1 diabetes: Without microvascular complications. Continue home medications (AM 14U aspart; noon 16U aspart; supper 20-21U aspart; snacks 1U:15 carbs aspart; 9pm 38U lantus). Will continue Lisinopril for kidney protection and Rosuvastatin. Will check blood sugars at bedtime and preprandial meals. 4. Hypothyroidism: Discussed labs and diagnosis with patient. Begin levothyroxi ne replacement. Repeat labs in 4 weeks. Likely discharge home today if anemia symptoms and vaginal bleeding controlled.
[2021-03-25] MEDS: Insulin Aspart 100 Units/ML 3 ML Pen SUBCUT SCH ×3 (08:00→17:32)
[2021-03-25] MEDS: Ferrous Sulfate 325 MG Tab PO SCH ×2 (08:55→17:32)
[2021-03-25] MEDS: Ascorbic Acid 500 MG Tab PO SCH ×2 (08:55→17:32)
[2021-03-25] MEDS ORDERED: Lisinopril 5 MG Tab PO SCH (09:00)
[2021-03-25] MEDS ORDERED: Rosuvastatin 10 MG Tab PO SCH (09:00)
[2021-03-25 09:51] LABS: BLOOD UREA NITROGEN,BUN 11 mg/dL (7.0-18.0); CARBON DIOXIDE,CO2 25.1 mmol/L (21.0-32.0); CHLORIDE,CL 104 mmol/L (98-107); GLUCOSE RANDOM 200 mg/dL (74-106); SODIUM,NA 136 mmol/L (136-145)
[2021-03-25] MEDS ORDERED: ESTRADIOL CYPIONATE IM ONE (17:32)
--- NOTE | 2021-03-25 22:12 | PCM.SN.2 ---
- Free Text/Narrative Note: 35yo admitted for acute blood aneamia secondary to abnormal uterine bleeding . She is s/p 2UPRBC , 3rd unit is running She also recieved TXA , Premarin. She states her bleeding is reduced , however was informed by nurse she has been passing huge clots when she goes to the bathroom her VSS are normal : shore hand dredge or barge 110s /50s - 60s , HR _ 70s H/H after 2nd unit is 7.4/22 , Hence i recommend an additional 1unit of PRBC VSS - wnl Exam: Pelvic - Normal appearing external genitalia , pad very scant blood seen Speculum: Cervix is closed , 4cm clot in the vagina , moderate amount of blood noted , clot removed and no active bleeding noted A/P 35yo with AUB , Acute blood loss aneamia , stable vital signs Plan IM estradiol 5mg stat Complete 3rd unit of PRBC 1g of TXA CBC after transfusion Discharge if CBC stable and bleeding controlled OCP cascade sent to Pharmacy Follow up with Dr Jones as scheduled
== END 2021-03-25 19:15 | disposition home or self-care (01) ==
LOC: MW.ED 14:44 → MW.MS 18:58 → INTOOBSV 18:58
PROVIDERS: ADMIT Obstetrics & Gynecology; ATTEND Obstetrics & Gynecology
DX: N92.0 Excessive and frequent menstruation with regular cycle (principal); D62 Acute posthemorrhagic anemia; E78.00 Pure hypercholesterolemia, unspecified; E10.9 Type 1 diabetes mellitus without complications; E03.9 Hypothyroidism, unspecified; Z20.822 Contact with and (suspected) exposure to COVID-19; Z79.899 Other long term (current) drug therapy
CPT/HCPCS: 36415; 36430; 76830; 80048; 82947; 84439; 84443; 84703; 85014; 85018; 85025; 85027; 85240; 85245; 85246; 85610; 85730; 86850; 86900; 86901; 86920; 86921; 86922; 87635; 96365; 96366; 96372; 96375; 96376; 99285; A9270; G0378; J1000; J1756; J1815; J2405; J7050; P9016; 96374; 99283; U0002

== ENCOUNTER 2023-12-20 06:31 | Day surgery (SDC) | payer BC ==
[~2023-12-20 06:31] MED LIST: Albuterol 0.083% 2.5 MG/3 ML Neb Soln NEB PRN; HYDROmorphone 1 MG/ML Syringe IVPUSH PRN; Metoclopramide 10 MG/2 ML SDV IVPUSH PRN; Morphine 2 MG/ML SYRINGE IVPUSH PRN; Naloxone 0.4 MG/ML SDV IVPUSH PRN; Ondansetron 4 MG/2 ML SDV IVPUSH PRN; Sodium Chloride 0.9% 10 ML Syringe FLUSH PRN; Sodium Chloride 0.9% 2.5 ML Syringe FLUSH PRN; Sodium Chloride 0.9% 20 ML SDV IV PRN; droPERidol 5 MG/2 ML SDV IVPUSH PRN; fentaNYL 50 MCG/ML SDV IVPUSH PRN
[2023-12-20] MEDS ORDERED: Bupivacaine 0.5% 30 ML SDV ONE ×2 (07:17→08:32)
[2023-12-20] MEDS ORDERED: propofoL 50 ML ONE (07:32)
[2023-12-20] MEDS ORDERED: Water For Injection, Sterile 20 ML ONE ×2 (07:35→11:06)
[2023-12-20] MEDS ORDERED: dexmedeTOMIDine HCl 200 MCG/2 ML SDV ONE (07:35)
[2023-12-20] MEDS ORDERED: fentaNYL 100 MCG/2 ML SDV ONE ×2 (07:39→11:07)
[2023-12-20] MEDS ORDERED: Bupivacaine 0.5%/EPINEPHrine 1:200,000 30 ML SDV ONE (07:46)
[2023-12-20] MEDS ORDERED: Bupivacaine 0.25% 30 ML SDV ONE (07:47)
[2023-12-20] MEDS: Lactated Ringers 1,000 ML IV SCH (08:45)
[2023-12-20] MEDS ORDERED: Rocuronium Bromide 50 MG/5 ML Syringe ONE (09:08)
[2023-12-20] MEDS ORDERED: Lidocaine 2% 11 ML Jelly Filled Syringe ONE (10:54)
[2023-12-20] MEDS ORDERED: Propofol 200 MG/20 ML SDV ONE (11:05)
[2023-12-20] MEDS ORDERED: ceFAZolin 2 GM Vial ONE (11:06)
[2023-12-20] MEDS ORDERED: Sugammadex Sodium 200 MG/2 ML VIAL IV ONE (11:19)
[2023-12-20] MEDS ORDERED: Ketorolac 30 MG/ML SDV ONE (11:19)
[2023-12-20] MEDS ORDERED: Ondansetron 4 MG/2 ML SDV ONE (11:19)
[2023-12-20] MEDS ORDERED: Dexamethasone 4 MG/ML 5 ML MDV ONE (11:19)
[2023-12-20] MEDS ORDERED: ceFAZolin 2 GM in Sodium Chloride 0.9% 50 ML IV ONE (14:51)
== END 2023-12-20 12:25 | disposition home or self-care (01) ==
LOC: MW.SDS 06:31
PROVIDERS: ATTEND Surgery
DX: K42.9 Umbilical hernia without obstruction or gangrene (principal); E10.9 Type 1 diabetes mellitus without complications; J01.90 Acute sinusitis, unspecified; Z79.899 Other long term (current) drug therapy
CPT/HCPCS: 49591; 64488; 81025; 82947; A9270; J0131; J0665; J0690; J1100; J1885; J2405; J2704; J3010; J3490; J7120; 00830

== ENCOUNTER 2025-06-11 06:49 | Day surgery (SDC) | payer BC ==
[~2025-06-11 06:49] MED LIST changes: -Albuterol 0.083% 2.5 MG/3 ML Neb Soln NEB PRN; -HYDROmorphone 1 MG/ML Syringe IVPUSH PRN; +Ketorolac 30 MG/ML SDV ONE; -Metoclopramide 10 MG/2 ML SDV IVPUSH PRN; +Morphine 10 MG/ML SDV ONE; -Morphine 2 MG/ML SYRINGE IVPUSH PRN; -Naloxone 0.4 MG/ML SDV IVPUSH PRN; -Ondansetron 4 MG/2 ML SDV IVPUSH PRN; +Ondansetron 4 MG/2 ML SDV ONE; +Scopalamine 1mg/3day Transdermal Patch ONE; +Scopalamine 1mg/3day Transdermal Patch TOP ONE; -Sodium Chloride 0.9% 10 ML Syringe FLUSH PRN; -Sodium Chloride 0.9% 2.5 ML Syringe FLUSH PRN; -Sodium Chloride 0.9% 20 ML SDV IV PRN; -droPERidol 5 MG/2 ML SDV IVPUSH PRN; +fentaNYL 100 MCG/2 ML SDV ONE; -fentaNYL 50 MCG/ML SDV IVPUSH PRN; +propofoL 1,000 MG/100 ML 100 ML ONE
[2025-06-11] MEDS ORDERED: Magnesium Sulfate (4.06 MEQ/ML) 5 GM/10 ML SDV ONE (06:51)
[2025-06-11] MEDS: Lactated Ringers 1,000 ML IV SCH (07:10)
[2025-06-11] MEDS ORDERED: dexmedeTOMIDine HCl 200 MCG/2 ML SDV ONE (07:14)
[2025-06-11 07:15] LABS: MEAN PLATELET VOLUME 10.4 fL (9.4-12.3); NRBC ABSOLUTE 0.00 K/uL (0.00-0.02); NRBC PERCENT 0.0 /100WBC (0.0-0.2); PLATELET COUNT,PLT 252 K/uL (150-400); RED BLOOD CELL COUNT 4.85 M/uL (4.10-5.30); WHITE BLOOD CELL COUNT,WBC 10.75 K/uL (3.9-11.3)
[2025-06-11] MEDS ORDERED: Ropivacaine 0.5% 5 MG/ML 30 ML SDV ONE (07:30)
[2025-06-11] MEDS ORDERED: Ondansetron 4 MG/2 ML SDV IVPUSH PRN (07:55)
[2025-06-11] MEDS ORDERED: Naloxone 0.4 MG/ML SDV IVPUSH PRN (07:55)
[2025-06-11] MEDS ORDERED: fentaNYL 50 MCG/ML SDV IVPUSH PRN (07:55)
[2025-06-11] MEDS ORDERED: Albuterol 0.083% 2.5 MG/3 ML Neb Soln NEB PRN (07:55)
[2025-06-11] MEDS ORDERED: propofoL 500 MG/50 ML 50 ML ONE (08:40)
== END 2025-06-11 11:14 | disposition home or self-care (01) ==
LOC: MW.SDS 06:49
PROVIDERS: ATTEND Obstetrics & Gynecology
DX: N73.4 Female chronic pelvic peritonitis (principal); E10.9 Type 1 diabetes mellitus without complications; E03.9 Hypothyroidism, unspecified; E66.9 Obesity, unspecified; Z88.8 Allergy status to other drugs, medicaments and biological substances; Z79.4 Long term (current) use of insulin; Z68.32 Body mass index [BMI] 32.0-32.9, adult; Z79.890 Hormone replacement therapy; Z79.899 Other long term (current) drug therapy
CPT/HCPCS: 36415; 49321; 58563; 64488; 82947; 84703; 85027; A9270; J0665; J0690; J1885; J2003; J2272; J2704; J2795; J3010; J3475; J7120; 00840; J2405; J2765; J3490